=== PATIENT | female | born 1995 | race African-American/Black ===

== ENCOUNTER 2017-04-25 03:37 | Emergency (ER) | payer MEDICAID ==
[2017-04-25 04:03] LABS: HCG URINE NEGATIVE (NEGATIVE)
[2017-04-25 04:05] LABS: APPEARANCE HAZY (CLEAR); BILIRUBIN NEGATIVE (NEGATIVE); COLOR YELLOW (YELLOW); GLUCOSE NEGATIVE (NEGATIVE); KETONE NEGATIVE (NEGATIVE); NITRITE NEGATIVE (NEGATIVE); PROTEIN TRACE mg/dL (NEGATIVE); SPECIFIC GRAVITY 1.025 (1.005-1.020); UROBILINOGEN NORMAL (NORMAL)
[2017-04-25 04:06] LABS: BACTERIA MODERATE /hpf (NONE SEEN); EPITHELIAL CELLS 0-5 /hpf (0-5); RED CELLS - URINE 0-5 /hpf (0-5); WHITE CELLS - URINE 0-5 /hpf (0-5)
[2017-04-25 04:07] LABS: MUCUS <1+ /lpf (NONE SEEN)
== END 2017-04-25 04:35 | disposition home or self-care (01) ==
LOC: D.ER 03:37
PROVIDERS: Emergency Medicine
DX: A08.4 Viral intestinal infection, unspecified (principal)

== ENCOUNTER 2017-05-04 15:27 | Emergency (ER) | payer SELFPAY ==
[2017-05-04 16:31] LABS: BASOPHILS 0.2 % (0-2); EOSINOPHILS 0.3 % (0-7); HEMOGLOBIN 11.3 g/dL (12-16); IMMATURE GRANULOCYTES 0.5 % (0-5); LYMPHOCYTES 30.8 % (15-50); MCH 25.1 pg (26.0-34.0); MCHC 31.4 g/dL (31.0-37.0); MCV 79.8 fL (80.0-100.0); MEAN PLATELET VOLUME 9.5 fL (7.4-10.4); MONOCYTES 9.1 % (2-11); NEUTROPHILS 59.1 % (40-80); PLATELET COUNT 597 10x3/uL (130-400); RBC 4.51 10x6/uL (4.00-5.40); RDW 15.1 % (11.5-14.5)
[2017-05-04 16:34] LABS: HCG SERUM NEGATIVE (NEGATIVE)
[2017-05-04 16:36] LABS: APPEARANCE HAZY (CLEAR); BILIRUBIN NEGATIVE (NEGATIVE); COLOR BROWN (YELLOW); GLUCOSE NEGATIVE (NEGATIVE); KETONE NEGATIVE (NEGATIVE); NITRITE NEGATIVE (NEGATIVE); PROTEIN TRACE mg/dL (NEGATIVE); UROBILINOGEN NORMAL (NORMAL)
[2017-05-04 16:39] LABS: AMORPHOUS SEDIMENT <1+ /lpf (NONE SEEN); BACTERIA FEW /hpf (NONE SEEN); EPITHELIAL CELLS 0-5 /hpf (0-5); RED CELLS - URINE >50 /hpf (0-5)
[2017-05-04 16:43] LABS: ALBUMIN 3.6 g/dL (3.4-5.0); ALKALINE PHOSPHATASE 64 U/L (46-116); ALT (SGPT) 13 U/L (10-68); BILIRUBIN - TOTAL 0.34 mg/dL (0.2-1.3); CALC OSMOLALITY 281 mosm/kg (275-300); CALCIUM 9.1 mg/dL (8.5-10.1); CARBON DIOXIDE 26.6 mmol/L (21.0-32.0); CHLORIDE - SERUM 105 mmol/L (98-107); CREATININE - SERUM 0.8 mg/dL (0.6-1.3); GLUCOSE 102 mg/dL (74-106); POTASSIUM - SERUM 3.6 mmol/L (3.5-5.1); PROTEIN - SERUM 7.4 g/dL (6.4-8.2); SODIUM 141 mmol/L (136-145); UREA NITROGEN 14 mg/dL (7-18); eGFR NON AFRICAN AMERICAN > 90 mL/min (90-120)
== END 2017-05-04 18:09 | disposition home or self-care (01) ==
LOC: D.ER 15:27
PROVIDERS: Emergency Medicine
DX: N94.6 Dysmenorrhea, unspecified (principal)

== ENCOUNTER 2018-06-10 18:31 | Emergency (ER) | payer SELFPAY ==
[~2018-06-10] VITALS: Ht 149.9 cm; Wt 96.6 kg
[2018-06-10 18:40] VITALS: Ht 149.9 cm; Wt 96.6 kg
[2018-06-10] MEDS ORDERED: NAPROSYN500 MG PO (19:37)
[2018-06-10 20:25] VITALS: BP 125/85
== END 2018-06-10 20:27 | disposition home or self-care (01) ==
LOC: D.ER 18:31
DX: S93.402A Sprain of unspecified ligament of left ankle, initial encounter (principal); X50.1XXA Overexertion from prolonged static or awkward postures, initial encounter; Y93.89 Activity, other specified; Y92.019 Unspecified place in single-family (private) house as the place of occurrence of the external cause

== ENCOUNTER 2020-10-17 13:50 | Emergency (ER) | payer OTHER ==
[~2020-10-17] VITALS: Ht 149.9 cm; Wt 95.5 kg
[~2020-10-17 13:50] MED LIST: NAPROSYN500 MG PO
[2020-10-17 13:53] VITALS: Ht 149.9 cm; Wt 95.5 kg
[2020-10-17 14:14] LABS: BASOPHILS 0.6 % (0-2); EOSINOPHILS 1.1 % (0-7); HEMATOCRIT 37.2 % (36.0-48.0); HEMOGLOBIN 11.7 g/dL (12-16); LYMPHOCYTES 30.3 % (15-50); MCH 23.7 pg (26.0-34.0); MCHC 31.4 g/dL (31.0-37.0); MCV 75.6 fL (80.0-100.0); MEAN PLATELET VOLUME 6.9 fL (7.4-10.4); MONOCYTES 8.9 % (2-11); NEUTROPHILS 59.1 % (40-80); PLATELET COUNT 577 10x3/uL (130-400); RBC 4.92 10x6/uL (4.00-5.40); WBC 7.7 10x3/uL (4.8-10.8)
[2020-10-17 14:18] LABS: CALC OSMOLALITY 274 mosm/kg (275-300); CALCIUM 9.4 mg/dL (8.5-10.1); CARBON DIOXIDE 25.6 mmol/L (21.0-32.0); CHLORIDE - SERUM 103 mmol/L (98-107); CREATININE - SERUM 0.8 mg/dL (0.6-1.3); GLUCOSE 92 mg/dL (74-106); POTASSIUM - SERUM 3.9 mmol/L (3.5-5.1); SODIUM 138 mmol/L (136-145); UREA NITROGEN 11 mg/dL (7-18); eGFR NON AFRICAN AMERICAN > 90 mL/min (90-120)
[2020-10-17 14:45] LABS: ALBUMIN 3.8 g/dL (3.4-5.0); ALKALINE PHOSPHATASE 67 U/L (30-120); ALT (SGPT) 20 U/L (10-68); BACTERIA MODERATE HPF (NONE SEEN); BILIRUBIN NEGATIVE (NEGATIVE); BILIRUBIN - TOTAL 0.63 mg/dL (0.2-1.3); HCG - QUANTITATIVE (MATERNAL) 3620 mIU/mL; KETONE NEGATIVE (NEGATIVE); NITRITE NEGATIVE (NEGATIVE); PROTEIN - SERUM 8.3 g/dL (6.4-8.2); SQUAMOUS EPITHELIAL 0-5 HPF (0-4); WHITE CELLS - URINE 0-5 HPF (0-4)
[2020-10-17 16:41] VITALS: BP 108/72
== END 2020-10-17 16:43 | disposition home or self-care (01) ==
LOC: D.ER 13:50
PROVIDERS: Family Medicine
DX: O20.0 Threatened abortion (principal); Z3A.01 Less than 8 weeks gestation of pregnancy